=== PATIENT | male | born 1955 | race Caucasian/White ===

== ENCOUNTER 2017-01-03 23:20 | Emergency (ER) | payer OTHER ==
[2017-01-04 05:57] LABS: HEMOGLOBIN 16.6 gm/dl (14.0-17.5); RED BLOOD COUNT 5.28 M/UL (4.20-5.50)
[2017-01-04 06:18] LABS: BUN/CREATININE RATIO 20 (0-10)
== END 2017-01-04 12:10 | disposition short-term general hospital (02) ==
LOC: ER1 23:20
PROVIDERS: Family Medicine
DX: S27.0XXA Traumatic pneumothorax, initial encounter (principal); S22.31XA Fracture of one rib, right side, initial encounter for closed fracture; V69.9XXA Occupant (driver) (passenger) of heavy transport vehicle injured in unspecified traffic accident, initial encounter; E11.9 Type 2 diabetes mellitus without complications; Y93.89 Activity, other specified; Y92.410 Unspecified street and highway as the place of occurrence of the external cause; Z79.84 Long term (current) use of oral hypoglycemic drugs
CPT/HCPCS: 36415; 70450; 71260; 72125; 80053; 81001; 82550; 82553; 83874; 84484; 85025; 93005; 96374; 96375; 96376; 99285; J2270; J2405; J7040; J7050; Q9962